=== PATIENT | female | born 1975 | race African-American/Black ===

== ENCOUNTER 2016-12-13 19:16 | Emergency (ER) | payer MEDICAID ==
[~2016-12-13] VITALS: Ht 177.8 cm; Wt 118.0 kg
[~2016-12-13 19:16] MED LIST: ALBUTEROL; FERR-63 PO; IBUP-779 PO; MULT-1146 PO
[2016-12-13] MEDS ORDERED: HYDROCODONE/ACETAMINOPHEN 5/325MG TABLET PO STA (22:12)
[2016-12-13] MEDS ORDERED: IBUPROFEN 600MG TABLET PO STA (22:12)
[2016-12-13] MEDS ORDERED: SODIUM CHLORIDE 0.9% 1,000 ML IV ONE (22:12)
[2016-12-13 23:05] LABS: BASOPHILS % 0.3 % (0.0-2.0); DIFFERENTIAL COMMENT 0; EOSINOPHILS % 0.1 % (0.0-5.0); HEMOGLOBIN. 12.3 g/dL (12.0-16.0); LYMPHOCYTES % 13.2 % (20.0-50.0); MEAN CORPUSCULAR HEMOGLOBIN 25.6 pg (28.0-32.0); MEAN CORPUSCULAR HGB CONC 32.5 g/dL (31.0-37.0); MEAN CORPUSCULAR VOLUME 78.9 fL (81.0-99.0); MEAN PLATELET VOLUME 8.5 fl (7.4-10.4); MONOCYTES % 7.4 % (2.0-8.0); PLATELET 263 x1000/uL (130-400); RED BLOOD CELL COUNT 4.81 mill/uL (4.2-5.4); RED CELL DISTRIBUTION WIDTH 14.6 % (11.6-14.6)
[2016-12-13 23:10] LABS: INR 1.1; PROTHROMBIN TIME 11.2 sec
[2016-12-13 23:18] LABS: ANION GAP 13; CARBON DIOXIDE 26 mEq/L (21-32); CHLORIDE 105 mEq/L (98-107); UREA NITROGEN BLOOD 12 mg/dL (7-21)
[2016-12-13 23:19] LABS: ALANINE AMINOTRANSFERASE 16 IU/L (13-61); ALBUMIN 3.3 g/dL (3.4-5.0); CALCIUM 8.6 mg/dL (8.5-10.1); INDEX HEMOLYSI 1 (1-3); INDEX ICTERIC 1 (1-4); INDEX LIPEMIC 1 (1-3); eGFR > 60 mL/min (>60)
[2016-12-13] MEDS ORDERED: VANCOMYCIN 1 G PREMIX 200 ML IV SCH (23:30)
[2016-12-13] MEDS ORDERED: PIPERACILLIN SODIUM/TAZOBACTAM 4.5 G in DEXT 5% WATER 100 ML IV SCH (23:30)
[2016-12-14 00:01] VITALS: BP 128/68
[2016-12-14 00:44] LABS: CLARITY URINE CLEAR (CLEAR); COLOR URINE YELLOW (YELLOW); GLUCOSE URINE NEGATIVE (NEGATIVE); KETONES URINE TRACE (NEGATIVE); LEUKOCYTE ESTERASE URINE NEGATIVE (NEGATIVE); NITRITE URINE NEGATIVE (NEGATIVE); OCCULT BLOOD URINE NEGATIVE (NEGATIVE); PH URINE 6.5 (4.5-8.0); PROTEIN URINE NEGATIVE (NEGATIVE); SPECIFIC GRAVITY URINE 1.027 (1.005-1.030)
== END 2016-12-14 04:19 | disposition home or self-care (01) ==
LOC: ER 22:53
DX: L03.313 Cellulitis of chest wall (principal); J45.909 Unspecified asthma, uncomplicated
CPT/HCPCS: 36415; 71010; 80053; 81003; 81025; 83605; 85025; 85610; 87040; 87086; 93005; 96365; 96366; 96368; 99285; J2543; J3370; J7030; Z7610; J7060

== ENCOUNTER 2017-01-29 17:30 | Emergency (ER) | payer MEDICAID ==
[~2017-01-29] VITALS: Ht 167.6 cm; Wt 110.0 kg
[2017-01-29] MEDS ORDERED: IBUPROFEN 800MG TABLET PO ONE (18:45)
[2017-01-29] MEDS ORDERED: MORPHINE SULFATE 4 MG/ML CPJ (NOT FOR IM USE) IV STA (20:48)
[2017-01-29] MEDS ORDERED: ONDANSETRON HCL 4MG/2ML VIAL IV STA (20:48)
[2017-01-29 22:23] LABS: CLARITY URINE CLEAR (CLEAR); COLOR URINE YELLOW (YELLOW); GLUCOSE URINE NEGATIVE (NEGATIVE); KETONES URINE TRACE (NEGATIVE); LEUKOCYTE ESTERASE URINE NEGATIVE (NEGATIVE); NITRITE URINE NEGATIVE (NEGATIVE); OCCULT BLOOD URINE NEGATIVE (NEGATIVE); PH URINE 5.5 (4.5-8.0); PROTEIN URINE NEGATIVE (NEGATIVE); SPECIFIC GRAVITY URINE 1.026 (1.005-1.030)
[2017-01-29] MEDS ORDERED: SULFAMETHOXAZOLE/TRIMETHOPRIM 800/160MG TABLET PO ONE (22:30)
[2017-01-29] MEDS ORDERED: CEPHALEXIN 500MG CAPSULE PO ONE (22:30)
[2017-01-29 23:14] VITALS: BP 115/70
[2017-01-29] MEDS ORDERED: HYDROCODONE/ACETAMINOPHEN 5/325MG TABLET PO ONE (23:15)
== END 2017-01-29 23:30 | disposition home or self-care (01) ==
LOC: ER 19:22
DX: S30.861A Insect bite (nonvenomous) of abdominal wall, initial encounter (principal); S70.361A Insect bite (nonvenomous), right thigh, initial encounter; M54.41 Lumbago with sciatica, right side; L08.9 Local infection of the skin and subcutaneous tissue, unspecified; J45.909 Unspecified asthma, uncomplicated; W57.XXXA Bitten or stung by nonvenomous insect and other nonvenomous arthropods, initial encounter; Y93.89 Activity, other specified; Y92.89 Other specified places as the place of occurrence of the external cause; Y99.8 Other external cause status
CPT/HCPCS: 81003; 81025; 96374; 96375; 99284; J2270; J2405; Z7610